=== PATIENT | female | born 1945 | race Caucasian/White ===

== ENCOUNTER 2021-10-03 21:27 | Emergency (ER) | payer MEDICARE, OTHER ==
[~2021-10-03] VITALS: Ht 167.6 cm; Wt 65.8 kg
--- NOTE | 2021-10-03 21:36 | NUR ---
BIBRA FROM SNF C/O R KNEE & R HIP PAIN S/P WITNESSED MECH FALL. -HEAD TRUAMA -KO DISCOLORATION TO L KNEE. NO ABNORMAL EXTENSTION, SHORTENING, OR EXTERNAL/INTERNAL ROTATION TO BLE. NEURO CHECK DONE. NO CHANGES IN LOC. PT CONNECTED TO POX AND MONITOR. SAFTEY MEASURES IN PLACE
[2021-10-03] MEDS ORDERED: IBUPROFEN 400 MG TABLET ONE (22:29)
[2021-10-03] MEDS ORDERED: IBUPROFEN 400 MG TABLET PO ONE (22:30)
--- NOTE | 2021-10-03 23:17 | NUR ---
OIL TRUCK DRIVER AT PT'S BEDSIDE
--- NOTE | 2021-10-04 00:31 | NUR ---
TELEPHONE CALL TO [facility] [place] AT [phone], SPOKE WITH DANIEL, ADVISED HER PT IS DISCHARGED AND WILL LET THEM KNOW OF ETA ONCE TRANSPORT IS CONFIRMED.
--- NOTE | 2021-10-04 00:42 | NUR ---
[facility] ETA ONE HOUR
--- NOTE | 2021-10-04 01:15 | NUR ---
PATIENT TRANSFERRED BACK TO [facility] VIA AMBULACE IN STABLE CONDITION, ACCOMPANIED 2 EMT PERSONNEL. REPORT GIVEN TO BEKAH SANCHEZ OF [facility] WAS NOTIFIED VIA PHONE AT [phone].
[2021-10-04 01:19] VITALS: BP 118/63
== END 2021-10-04 01:15 | disposition home or self-care (01) ==
LOC: ER 21:37
DX: S70.01XA Contusion of right hip, initial encounter (principal); S80.01XA Contusion of right knee, initial encounter; S80.02XA Contusion of left knee, initial encounter; I10 Essential (primary) hypertension; E11.9 Type 2 diabetes mellitus without complications; W01.0XXA Fall on same level from slipping, tripping and stumbling without subsequent striking against object, initial encounter; Y93.89 Activity, other specified; Y92.89 Other specified places as the place of occurrence of the external cause; Y99.8 Other external cause status
CPT/HCPCS: 73502; 73564-TC

== ENCOUNTER 2022-12-04 14:59 | Emergency (ER) | payer MEDICARE, OTHER ==
[~2022-12-04] VITALS: Ht 152.4 cm; Wt 45.4 kg
--- NOTE | 2022-12-04 15:10 | NUR ---
RECEVED PT 77 YRS FEMALE TRANSFER FROM SNF C/O PAIN ON RT WRIST ABLE TO MOVED
--- NOTE | 2022-12-04 15:20 | NUR ---
SEEN BY TAHIR
[2022-12-04] MEDS ORDERED: METO25TA20 PO (15:32)
[2022-12-04] MEDS ORDERED: ACET325T53 PO (15:32)
[2022-12-04] MEDS ORDERED: DOCU-141 PO (15:32)
[2022-12-04] MEDS ORDERED: ASPI-1169 PO (15:32)
[2022-12-04] MEDS ORDERED: MAGN400T8 PO (15:32)
[2022-12-04] MEDS ORDERED: METF-440 PO (15:32)
[2022-12-04] MEDS ORDERED: ASCO500C17 PO (15:32)
[2022-12-04] MEDS ORDERED: CLOP75TA15 PO (15:32)
[2022-12-04] MEDS ORDERED: MODAFINIL PO (15:32)
[2022-12-04] MEDS ORDERED: ATOR80TA PO (15:32)
[2022-12-04] MEDS ORDERED: BISA10SU11 RC (15:32)
[2022-12-04] MEDS ORDERED: GUAI237L98 PO (15:32)
[2022-12-04] MEDS ORDERED: AMLO-213 PO (15:32)
[2022-12-04] MEDS ORDERED: CRAN400C PO (15:32)
[2022-12-04] MEDS ORDERED: CALC-883 PO (15:32)
[2022-12-04] MEDS ORDERED: QUET25TA PO ×2 (15:32)
[2022-12-04] MEDS ORDERED: HYDROCODONE/APAP 5/325MG TABLET PO ONE (16:00)
[2022-12-04] MEDS ORDERED: HYDROCODONE/APAP 5/325MG TABLET ONE (16:05)
--- NOTE | 2022-12-04 16:35 | NUR ---
X RAY DONE AT SIDE
--- NOTE | 2022-12-04 17:47 | NUR ---
RESTING AT THIS TIME
[2022-12-04 19:22] VITALS: BP 130/62
--- NOTE | 2022-12-05 12:31 | NUR ---
SS note: SW received call from Public Guardian Conservator, Mo, tel:[phone] wanting information as he heard from the pt'.'s facility that the pt. had been admitted to the hospital, however, I notified him that per EMR, the pt. just had an ER visit and returned to [facility] upon medical clearance. Mo was agreeable and will follow up at facility.
== END 2022-12-04 19:25 ==
LOC: ER 15:08
DX: M25.531 Pain in right wrist (principal); I10 Essential (primary) hypertension; E11.9 Type 2 diabetes mellitus without complications; Z88.2 Allergy status to sulfonamides; Z79.899 Other long term (current) drug therapy; Z79.82 Long term (current) use of aspirin; Z79.84 Long term (current) use of oral hypoglycemic drugs
CPT/HCPCS: 73110

== ENCOUNTER 2024-02-09 00:28 | Emergency (ER) | payer MEDICARE, OTHER ==
[~2024-02-09] VITALS: Ht 157.5 cm; Wt 54.4 kg
[~2024-02-09 00:28] MED LIST: ACET325T53 PO; AMLO-213 PO; ASCO500C17 PO; ASPI-1169 PO; ATOR80TA PO; BISA10SU11 RC; CALC-883 PO; CLOP75TA15 PO; CRAN400C PO; DOCU-141 PO; GUAI237L98 PO; MAGN400T8 PO; METF-440 PO; METO25TA20 PO; MODAFINIL PO; QUET25TA PO
[2024-02-09 00:38] VITALS: TEMP 99.2
[2024-02-09 01:05] LABS: APPEARANCE,URINE CLEAR (CLEAR); BILIRUBIN,URINE NEGATIVE (NEGATIVE); BLOOD, URINE NEGATIVE Ery/uL (NEGATIVE); COLOR,URINE YELLOW (YELLOW); KETONES,URINE NEGATIVE (NEGATIVE); LEUKOCYTE ESTERASE ,URINE NEGATIVE (NEGATIVE); NITRITE, URINE NEGATIVE (NEGATIVE); PROTEIN,URINE NEGATIVE (NEGATIVE); UGLUCOSE NEGATIVE (NEGATIVE)
[2024-02-09 01:05] LABS: BASOPHILS # (AUTO) 0.1 K/uL (0.0-0.2); BASOPHILS % (AUTO) 0.6 % (0.0-2.0); EOSINOPHILS # (AUTO) 0.1 K/uL (0.0-0.7); HEMATOCRIT 37 % (33-45); LYMPHOCYTES # (AUTO) 2.3 K/uL (0.8-4.8); MEAN CORPUSCULAR HEMOGLOBIN 30 PG (26.0-33.0); MEAN CORPUSCULAR HGB CONC 32 g/dl (31.0-36.0); MEAN CORPUSCULAR VOLUME 92 fL (82-100); MONOCYTES # (AUTO) 0.9 K/uL (0.1-1.30); MONOCYTES % (AUTO) 9.7 % (2.0-12.0); NEUTROPHILS # (AUTO) 5.8 K/uL (1.8-8.9); NEUTROPHILS % (AUTO) 63.7 % (43.0-81.0); PLATELET COUNT (AUTO) 253 K/uL (150-450); RED BLOOD CELL COUNT(AUTO) 4.02 MIL/uL (4.0-5.2); RED CELL DISTRIBUTION WIDTH 14.4 % (11.5-15.0)
[2024-02-09] MEDS: IV D5/0.45 NACL 1,000 ML IV ONE (01:21)
[2024-02-09 01:31] LABS: CALCIUM, SERUM 8.6 mg/dL (8.5-10.1); CARBON DIOXIDE 28 mmol/L (21-32); CHLORIDE 106 mmol/L (98-107); CREATININE 0.9 mg/dL (0.6-1.3); GLUCOSE 66 mg/dL (74-106); SODIUM SERUM 143 mmol/L (136-145); UREA NITROGEN, BLOOD 26 mg/dL (7-18)
[2024-02-09 01:38] LABS: ALANINE AMINOTRANSFERASE 17 U/L (12-78); ALBUMIN 3.5 g/dL (3.4-5.0); ALKALINE PHOSPHATASE 109 U/L (46-116); ASPARTATE AMINOTRANSFERASE 24 U/L (15-37); BILIRUBIN,DIRECT 0.1 mg/dL (0.0-0.2); BILIRUBIN,TOTAL 0.2 mg/dL (0.2-1.0); LIPASE 76 U/L (16-77); TOTAL PROTEIN, SERUM 7.1 g/dL (6.4-8.2)
[2024-02-09 01:42] LABS: MAGNESIUM 1.9 mg/dL (1.8-2.4)
[2024-02-09 01:45] LABS: THYROID STIMULATING HORMONE 5.015 uIU/mL (0.358-3.74)
[2024-02-09 02:30] VITALS: BP 131/74; O2SAT 97
== END 2024-02-09 02:30 ==
LOC: ER 00:30
DX: R63.0 Anorexia (principal); I10 Essential (primary) hypertension; F03.90 Unspecified dementia, unspecified severity, without behavioral disturbance, psychotic disturbance, mood disturbance, and anxiety; E11.9 Type 2 diabetes mellitus without complications; Z88.2 Allergy status to sulfonamides; Z91.013 Allergy to seafood; Z88.8 Allergy status to other drugs, medicaments and biological substances; Z79.899 Other long term (current) drug therapy; Z68.21 Body mass index [BMI] 21.0-21.9, adult
CPT/HCPCS: 99285; 96360; 71045; 93005; 85025; 80048; 83690; 80076; 83735; 81003; 36415; 84439; 84443; 84484; 83880; 82962; J7070

== ENCOUNTER 2024-07-27 13:04 | Inpatient (IN) | payer MEDICARE, OTHER ==
[~2024-07-27] VITALS: Ht 157.5 cm; Wt 43.5 kg
[2024-07-27] MEDS ORDERED: CHOL200059 PO (13:40)
[2024-07-27] MEDS ORDERED: NA P133E RC (13:40)
[2024-07-27] MEDS ORDERED: GLUC1KIT IJ (13:40)
[2024-07-27] MEDS ORDERED: MAGN400O6 PO (13:40)
[2024-07-27] MEDS ORDERED: ACET-637 PO (13:40)
[2024-07-27 14:04] LABS: BASOPHILS # (AUTO) 0.1 K/uL (0.0-0.2); EOSINOPHILS # (AUTO) 0.3 K/uL (0.0-0.7); EOSINOPHILS % (AUTO) 3.4 % (0.0-6.0); HEMATOCRIT 33 % (33-45); HEMOGLOBIN 10.9 g/dL (11.5-14.8); MEAN CORPUSCULAR HEMOGLOBIN 29 PG (26.0-33.0); MEAN CORPUSCULAR HGB CONC 33 g/dl (31.0-36.0); MEAN CORPUSCULAR VOLUME 87 fL (82-100); MONOCYTES # (AUTO) 0.8 K/uL (0.1-1.30); MONOCYTES % (AUTO) 9.4 % (2.0-12.0); NEUTROPHILS # (AUTO) 5.6 K/uL (1.8-8.9); NEUTROPHILS % (AUTO) 63.2 % (43.0-81.0); PLATELET COUNT (AUTO) 283 K/uL (150-450); RED BLOOD CELL COUNT(AUTO) 3.79 MIL/uL (4.0-5.2); RED CELL DISTRIBUTION WIDTH 14.2 % (11.5-15.0); WHITE BLOOD COUNT (AUTO) 8.8 K/uL (4.3-11.0)
[2024-07-27 14:16] LABS: ALANINE AMINOTRANSFERASE 17 U/L (12-78); ALBUMIN 3.6 g/dL (3.4-5.0); ALKALINE PHOSPHATASE 104 U/L (46-116); ASPARTATE AMINOTRANSFERASE 14 U/L (15-37); BILIRUBIN,DIRECT 0.1 mg/dL (0.0-0.2); BILIRUBIN,TOTAL 0.3 mg/dL (0.2-1.0); CARBON DIOXIDE 27 mmol/L (21-32); CHLORIDE 108 mmol/L (98-107); CREATININE 0.7 mg/dL (0.6-1.3); GLUCOSE 100 mg/dL (74-106); LIPASE 66 U/L (16-77); POTASSIUM 4.8 mmol/L (3.5-5.1); SODIUM SERUM 143 mmol/L (136-145); TOTAL PROTEIN, SERUM 6.8 g/dL (6.4-8.2); UREA NITROGEN, BLOOD 22 mg/dL (7-18)
[2024-07-27 14:17] LABS: INR 1.03 (0.91-1.10); PARTIAL THROMBOPLASTIN TIME 28.7 SEC (24.3-34.3); PROTHROMBIN TIME 10.9 SECS (9.2-11.1)
[2024-07-27] MEDS ORDERED: ONDANSETRON HCL/PF 4 MG/2 ML VIAL IVP PRN (15:30)
[2024-07-27] MEDS ORDERED: MAG HYDROX/AL HYDROX/SIMETH 30 ML UDC PO PRN (15:30)
[2024-07-27] MEDS ORDERED: Z GUARD REMEDY 4 OZ OINT TP PRN (15:30)
[2024-07-27] MEDS ORDERED: IV NS 0.9% 1,000 ML BAG IV PRN (16:30)
[2024-07-27 16:55] LABS: APPEARANCE,URINE Slightly Cloudy (CLEAR); BILIRUBIN,URINE Negative (NEGATIVE); BLOOD, URINE Negative Ery/uL (NEGATIVE); COLOR,URINE YELLOW (YELLOW); KETONES,URINE Negative (NEGATIVE); LEUKOCYTE ESTERASE ,URINE Small (NEGATIVE); NITRITE, URINE Negative (NEGATIVE); PROTEIN,URINE Negative (NEGATIVE); UGLUCOSE Negative (NEGATIVE)
[2024-07-27] MEDS: IV D5/0.45 NACL 1,000 ML IV PRN (17:14)
[2024-07-27 17:32] LABS: ADD URINE CULTURE YES; BACTERIA,URINE Many /HPF (None Seen); SQUAMOUS EPITHELIAL CELL,UR Moderate /HPF (None Seen)
[2024-07-27] MEDS: ENOXAPARIN SODIUM 40 MG/0.4 ML DISP.SYRIN SQ SCH (18:51)
[2024-07-27] MEDS: CEFTRIAXONE 1 G in IV D5W 50 ML IV SCH (18:52)
[2024-07-27 20:00] VITALS: BP 128/79; TEMP 97.3; O2SAT 94
[2024-07-27] MEDS: ACETAMINOPHEN 325 MG TABLET PO PRN (20:06)
[2024-07-27] MEDS ORDERED: ZOLPIDEM TARTRATE 5 MG TABLET PO PRN (22:00)
[2024-07-27] MEDS ORDERED: MAGNESIUM HYDROXIDE 30 ML UDC PO PRN (22:00)
[2024-07-28] VITALS: BP 130/81; TEMP 98; O2SAT 95
[2024-07-28 04:00] VITALS: BP 135/75; TEMP 98; O2SAT 95
[2024-07-28 07:17] LABS: BASOPHILS # (AUTO) 0.1 K/uL (0.0-0.2); BASOPHILS % (AUTO) 1.1 % (0.0-2.0); EOSINOPHILS # (AUTO) 0.2 K/uL (0.0-0.7); EOSINOPHILS % (AUTO) 3.5 % (0.0-6.0); HEMATOCRIT 33 % (33-45); HEMOGLOBIN 10.9 g/dL (11.5-14.8); LYMPHOCYTES # (AUTO) 1.7 K/uL (0.8-4.8); LYMPHOCYTES % (AUTO) 27.1 % (20.0-44.0); MEAN CORPUSCULAR HEMOGLOBIN 28 PG (26.0-33.0); MEAN CORPUSCULAR HGB CONC 33 g/dl (31.0-36.0); MEAN CORPUSCULAR VOLUME 86 fL (82-100); MONOCYTES # (AUTO) 0.7 K/uL (0.1-1.30); MONOCYTES % (AUTO) 10.6 % (2.0-12.0); NEUTROPHILS # (AUTO) 3.6 K/uL (1.8-8.9); NEUTROPHILS % (AUTO) 57.7 % (43.0-81.0); PLATELET COUNT (AUTO) 280 K/uL (150-450); RED BLOOD CELL COUNT(AUTO) 3.86 MIL/uL (4.0-5.2); RED CELL DISTRIBUTION WIDTH 13.8 % (11.5-15.0); WHITE BLOOD COUNT (AUTO) 6.3 K/uL (4.3-11.0)
[2024-07-28] MEDS: PANTOPRAZOLE 40 MG TABLET.DR PO SCH (07:30)
[2024-07-28 08:00] VITALS: BP 112/61; TEMP 98.6; O2SAT 94
[2024-07-28 08:01] LABS: CALCIUM, SERUM 8.9 mg/dL (8.5-10.1); CARBON DIOXIDE 24 mmol/L (21-32); CHLORIDE 103 mmol/L (98-107); CREATININE 0.7 mg/dL (0.6-1.3); GLUCOSE 122 mg/dL (74-106); MAGNESIUM 1.8 mg/dL (1.8-2.4); PHOSPHORUS 3.2 mg/dL (2.5-4.9); POTASSIUM 3.5 mmol/L (3.5-5.1); SODIUM SERUM 138 mmol/L (136-145); UREA NITROGEN, BLOOD 13 mg/dL (7-18)
[2024-07-28] MEDS: THERAHONEY GEL 1.5 OZ TUBE TP SCH (10:32)
[2024-07-28] MEDS: PROSOURCE / PROSTAT (PYXIS) 30 ML UDC GT SCH (12:13)
[2024-07-28] MEDS: GLUCERNA SHAKE 237 ML CAN PO SCH (12:13)
[2024-07-28 16:00] VITALS: BP 120/75; TEMP 98.5; O2SAT 94
[2024-07-28 20:00] VITALS: BP 100/62; TEMP 98.8; O2SAT 93
[2024-07-29 08:00] VITALS: BP 123/90; TEMP 98.6; O2SAT 93
[2024-07-29 16:00] VITALS: BP 128/68; TEMP 97.9; O2SAT 94
[2024-07-29 20:00] VITALS: BP 117/61; TEMP 98.1; O2SAT 94
== END 2024-07-30 16:00 | DRG 689 ==
LOC: ER 13:06 → TELE 15:42 → MED 07-28 12:22
DX: N39.0 Urinary tract infection, site not specified (principal); L89.154 Pressure ulcer of sacral region, stage 4; E03.9 Hypothyroidism, unspecified; D64.9 Anemia, unspecified; E11.9 Type 2 diabetes mellitus without complications; F03.90 Unspecified dementia, unspecified severity, without behavioral disturbance, psychotic disturbance, mood disturbance, and anxiety; Z79.84 Long term (current) use of oral hypoglycemic drugs; Z20.822 Contact with and (suspected) exposure to COVID-19; I10 Essential (primary) hypertension; E78.5 Hyperlipidemia, unspecified; Z88.2 Allergy status to sulfonamides; Z91.010 Allergy to peanuts; Z91.013 Allergy to seafood; Z79.82 Long term (current) use of aspirin; Z79.02 Long term (current) use of antithrombotics/antiplatelets; Z79.899 Other long term (current) drug therapy; J44.9 Chronic obstructive pulmonary disease, unspecified; G89.29 Other chronic pain; R79.89 Other specified abnormal findings of blood chemistry
CPT/HCPCS: 36415; 71045-TC; 80048-TC; 80076-TC; 81001; 82962-TC; 83690-TC; 83735-TC; 84100-TC; 84443-TC; 84484-TC; 85025-TC; 85730-TC; 87086-TC; 92526; 92611-TC; 97110-TC; 97112-TC; 97530-TC; A4223; G0378; J0696; J1650; J3490; J7060